=== PATIENT | female | born 1995 | race Caucasian/White ===

== ENCOUNTER 2019-06-24 10:41 | Inpatient (IN) | payer OTHER ==
[~2019-06-24] VITALS: Ht 160 cm; Wt 99.3 kg
[2019-06-24] MEDS: LACTATED RINGERS 1,000 ML IV SCH ×2 (04:15→19:34)
[2019-06-24] MEDS ORDERED: OXYTOCIN 20 UNITS in LACTATED RINGERS 1,000 ML IV SCH (11:35)
[2019-06-24] MEDS ORDERED: MORPHINE SULFATE 10 MG/ML VIAL IVP PRN ×2 (11:35→11:46)
[2019-06-24] MEDS ORDERED: PROMETHAZINE 25 MG/ML VIAL IVP PRN (11:35)
[2019-06-24] MEDS ORDERED: CARBOPROST 250 MCG/ML AMP IM PRN (11:35)
[2019-06-24] MEDS ORDERED: METHYLERGONOVINE 0.2 MG/ML AMP IM PRN (11:35)
[2019-06-24 12:03] LABS: BASOPHILS % (AUTO) 0.4 % (0.0-2.0); EOSINOPHILS % (AUTO) 0.2 % (0.0-4.0); HEMATOCRIT 33.4 % (36-48); HEMOGLOBIN 10.5 g/dL (12.0-16.0); LYMPHOCYTES # (AUTO) 1.8 K/uL (2.5-16.5); LYMPHOCYTES % (AUTO) 16.4 % (20.5-51.1); MEAN CORPUSCULAR HEMOGLOBIN 24 pg (27-31); MEAN CORPUSCULAR HGB CONC 31 g/dL (33-37); MEAN CORPUSCULAR VOLUME 75.3 fL (80-94); MONOCYTES # (AUTO) 0.6 K/uL (0.8-1.0); MONOCYTES % (AUTO) 5.3 % (1.7-9.3); NEUTROPHILS # (AUTO) 8.6 K/uL (1.8-7.7); NEUTROPHILS % (AUTO) 77.7 % (42.2-75.2); PLATELET COUNT (AUTO) 227 K/uL (140-450); RED BLOOD CELL COUNT(AUTO) 4.44 MIL/uL (4.20-5.40); RED CELL DISTRIBUTION WIDTH 16.8 % (11.6-13.7)
[2019-06-24 12:06] LABS: APPEARANCE,URINE CLEAR (CLEAR); BILIRUBIN,URINE NEGATIVE (NEGATIVE); BLOOD, URINE NEGATIVE (NEGATIVE); COLOR,URINE YELLOW (YELLOW); LEUKOCYTE ESTERASE ,URINE 1+ (NEGATIVE); NITRITE, URINE NEGATIVE (NEGATIVE); PH,URINE 6.5 (5.0-9.0); UGLUCOSE NEGATIVE (NEGATIVE)
[2019-06-24 12:19] LABS: RBC,URINE 0-5 /HPF (0-5); WBC,URINE 60-80 /HPF (0-5)
[2019-06-24 12:20] LABS: CALCIUM OXALATE CRYSTALS,UR 0-10 /HPF (None Seen)
--- NOTE | 2019-06-24 13:08 | NUR ---
PATIENT HAS BEEN SCREENED AND CATEGORIZED LOW NUTRITION RISK. PATIENT WILL BE SEEN WITHIN 7 DAYS OF ADMISSION. 06/30/[address]
[2019-06-24] MEDS: MISOPROSTOL 25 MCG TAB VG SCH ×3 (13:34→22:18)
[2019-06-24 13:48] VITALS: BP 112/76
[2019-06-25 02:06] VITALS: BP 132/85
[2019-06-25] MEDS ORDERED: OXYTOCIN 20 UNITS/LR PREMIX 1,000 ML IV ONE (02:15)
[2019-06-25] MEDS ORDERED: ROPIVACAINE 0.2%/NS PREMIX 200 ML EPI ONE (04:01)
[2019-06-25] MEDS: LACTATED RINGERS 1,000 ML IV SCH (08:07)
[2019-06-25] MEDS ORDERED: CITRIC ACID/SODIUM CITRATE 30 ML UDC PO SCH (08:35)
[2019-06-25] MEDS ORDERED: ceFAZolin 1,000 MG VIAL ONE (09:00)
[2019-06-25] MEDS ORDERED: LIDOCAINE/EPI MPF 2%1:200000 10 ML VIAL INJ ONE (09:02)
[2019-06-25] MEDS ORDERED: MORPHINE PRES FREE 10 MG/10 ML AMP IV ONE (09:02)
[2019-06-25] MEDS ORDERED: SODIUM BICARBONATE 8.4% PFS 50 MEQ/50 ML SYR IVP ONE (09:03)
[2019-06-25] MEDS ORDERED: oxyCODONE/APAP 5/325 MG 1 TAB TAB PO PRN (09:10)
[2019-06-25] MEDS ORDERED: TEMAZEPAM 15 MG CAP PO PRN (09:10)
[2019-06-25] MEDS ORDERED: MEASLES, MUMPS, AND RUBELLA 1 VIAL SQVAC PRN (09:10)
[2019-06-25] MEDS ORDERED: METHYLERGONOVINE 0.2 MG/ML AMP IM PRN (09:10)
[2019-06-25] MEDS ORDERED: KETOROLAC 30 MG/ML VIAL IVP PRN (09:35)
[2019-06-25] MEDS ORDERED: NALBUPHINE 10 MG/ML AMP IVP PRN (09:35)
[2019-06-25] MEDS ORDERED: NALOXONE 0.4 MG/ML VIAL IVP PRN ×3 (09:35)
[2019-06-25] MEDS ORDERED: ONDANSETRON 4 MG/2 ML VIAL IVP PRN ×2 (09:35)
[2019-06-25] MEDS: diphenhydrAMINE 50 MG/ML VIAL IVP PRN ×2 (10:15→14:25)
[2019-06-25] MEDS ORDERED: KETOROLAC 30 MG/ML VIAL IVP SCH (12:00)
[2019-06-25] MEDS: OXYTOCIN 20 UNITS in LACTATED RINGERS 1,000 ML IV SCH (19:44)
[2019-06-25] MEDS: SENNA 8.6 MG TAB PO SCH (20:44)
[2019-06-25] MEDS: DOCUSATE SOD/SENNA 50/8.6 MG 1 TAB PO SCH (20:44)
[2019-06-26] MEDS ORDERED: OXYTOCIN 20 UNITS/LR PREMIX 1,000 ML IV ONE (03:48)
[2019-06-26] MEDS: OXYTOCIN 20 UNITS in LACTATED RINGERS 1,000 ML IV SCH (03:55)
[2019-06-26 05:55] LABS: BASOPHILS % (AUTO) 0.2 % (0.0-2.0); HEMATOCRIT 28.6 % (36-48); HEMOGLOBIN 9.1 g/dL (12.0-16.0); LYMPHOCYTES % (AUTO) 13.9 % (20.5-51.1); MEAN CORPUSCULAR HEMOGLOBIN 24 pg (27-31); MEAN CORPUSCULAR HGB CONC 32 g/dL (33-37); MEAN CORPUSCULAR VOLUME 75.4 fL (80-94); MONOCYTES # (AUTO) 0.8 K/uL (0.8-1.0); MONOCYTES % (AUTO) 5.4 % (1.7-9.3); NEUTROPHILS # (AUTO) 11.4 K/uL (1.8-7.7); NEUTROPHILS % (AUTO) 80.5 % (42.2-75.2); PLATELET COUNT (AUTO) 176 K/uL (140-450); RED CELL DISTRIBUTION WIDTH 17.2 % (11.6-13.7); WHITE BLOOD COUNT (AUTO) 14.2 K/uL (4.8-10.8)
[2019-06-26] MEDS ORDERED: SODIUM PHOSPHATE 118 ML ENEM RC SCH (09:00)
[2019-06-26] MEDS: IBUPROFEN 800 MG TAB PO PRN (17:02)
[2019-06-26] MEDS: DOCUSATE SOD/SENNA 50/8.6 MG 1 TAB PO SCH (20:44)
[2019-06-26] MEDS: SENNA 8.6 MG TAB PO SCH (20:44)
[2019-06-27] MEDS: SIMETHICONE 80 MG TAB.CHEW PO PRN (08:01)
[2019-06-27] MEDS: HYDROcodone/APAP 5/325 MG 1 TAB TAB PO PRN ×2 (08:01→12:29)
[2019-06-27] MEDS ORDERED: INFLUENZA VACCINE QUAD 0.5 ML SYR IMVAC PRN (20:40)
[2019-06-27] MEDS ORDERED: CAMERA MC ONE (20:44)
[2019-06-27] MEDS: SENNA 8.6 MG TAB PO SCH (20:52)
[2019-06-27] MEDS: DOCUSATE SOD/SENNA 50/8.6 MG 1 TAB PO SCH (20:52)
[2019-06-27] MEDS: IBUPROFEN 800 MG TAB PO PRN (22:15)
[2019-06-28] MEDS: SIMETHICONE 80 MG TAB.CHEW PO PRN ×2 (09:13→12:48)
[2019-06-28] MEDS ORDERED: FERR-18 PO (10:36)
[2019-06-28] MEDS ORDERED: IBUP-2213 PO (10:37)
[2019-06-28] MEDS ORDERED: HYDR-5122 PO (10:38)
[2019-06-28] MEDS: IBUPROFEN 800 MG TAB PO PRN (10:50)
[2019-06-28] MEDS: HYDROcodone/APAP 5/325 MG 1 TAB TAB PO PRN (12:48)
== END 2019-06-28 16:15 | disposition home or self-care (01) | DRG 540 ==
LOC: MFCC 10:41
PROVIDERS: ADMIT Obstetrics & Gynecology; ATTEND Obstetrics & Gynecology
PROC: 3E0134Z Introduction of Serum, Toxoid and Vaccine into Subcutaneous Tissue, Percutaneous Approach (ICD-10-PCS; 2019-06-25)
PROC: 10D00Z1 Extraction of Products of Conception, Low, Open Approach (ICD-10-PCS; principal; 2019-06-25 08:58)
PROC: 3E02340 Introduction of Influenza Vaccine into Muscle, Percutaneous Approach (ICD-10-PCS; 2019-06-27)
DX: O69.1XX0 Labor and delivery complicated by cord around neck, with compression, not applicable or unspecified (principal); R71.0 Precipitous drop in hematocrit; O48.0 Post-term pregnancy; O76 Abnormality in fetal heart rate and rhythm complicating labor and delivery; Z23 Encounter for immunization; Z3A.40 40 weeks gestation of pregnancy; Z37.0 Single live birth
CPT/HCPCS: 36415; 51702; 59200; 81001; 85025; 86592; 86886; 86900; 86901; 87086; 90707; J0690; J1200; J1885; J2001; J2270; J2405; J2590; J2795; J7060; J7120